=== PATIENT | male | born 1955 | race Caucasian/White ===

== ENCOUNTER → 2016-04-07 | Outpatient (CLI) | payer MEDICAID ==
--- NOTE | 2016-04-07 19:42 | MR ---
MRI of the Right Shoulder History: Persistent shoulder pain in spite of conservative treatment. Technique: Axial proton density, oblique coronal, and sagittal T1 and T2 images were acquired. Comparison examination: April 07, 2015. Findings: From prior study, there has been significant interval decrease in inflammatory changes with in the rotator interval suggestive of decreasing adhesive capsulitis. There has also been interval de crease in features of subacromial bursitis. The subacromial bursa currently is dry. Supraspinatus and infraspinatus tendons are intact. There is mild thinning of subscapularis distally without tear. Teres minor is intact. There is mild focal long head biceps tendinosis through the rotator interval and intra-articular aspe ct, without dislocation or tear. Labral evaluation demonstrates a small focal nondisplaced tear of the posterior superior labrum, exte nding from the biceps labral complex to the 10:30 position. The previously identified small labral pe rforation at the 6 o'clock position is less conspicuous on the current examination with a tiny perila bral cyst identified under the glenoid rim. However, there is evidence of linear undercutting of the posterior inferior labrum which extends from the 6 o'clock position to the 9 o'clock position. Articu lar cartilage of the glenohumeral joint appears intact. Impression: 1. Significant interval improvement in inflammatory changes within the rotator interval and the subac romial/subdeltoid bursa from prior study. 2. Intact rotator cuff. Mild distal subscapularis tendon thinning. 3. Long head biceps tendinosis. 4. Small focal nondisplaced posterior superior glenoid labral tear, similar to previous exam. There i s also a nondisplaced posterior inferior glenoid labral tear extending from 6 o'clock through 9 o'sreedhar ck.
== END ==
LOC: FIMAGING 16:11
PROVIDERS: ATTEND Physician Assistant
DX: M25.511 Pain in right shoulder (principal); M75.21 Bicipital tendinitis, right shoulder; M24.811 Other specific joint derangements of right shoulder, not elsewhere classified

== ENCOUNTER → 2016-07-01 | Outpatient (CLI) | payer MEDICAID | LOC: CIMAGING 17:51 | PROVIDERS: ATTEND Internal Medicine | DX: N43.3 Hydrocele, unspecified (principal); N50.3 Cyst of epididymis | CPT/HCPCS: 76870-PO ==

== ENCOUNTER 2016-07-21 18:57 | Emergency (ER) | payer MEDICAID ==
--- NOTE | 2016-07-21 19:04 | EDPHY ---
H & P Time Seen by Provider: 07/21/16 19:15 HPI/ROS: CHIEF COMPLAINT: Lightheadedness, near syncope HISTORY OF PRESENT ILLNESS: This patient is a normally healthy 61 year old male who presents to the Emergency Department complaining of episodic lightheadedness over the past two days. Today, he experienced two episodes of brief lightheadedness, the first after running this morning and the second after going to the gym tonight. Each time, he reports 1-2 seconds of dizziness/ lightheadedness (not spinning) associated with a sensation of near syncope. He regularly takes his blood pressure and reports that he is typically normotensive but was hypertensive this evening at 192/106. He denies chest pain , dyspnea, nausea, vomiting, or diaphoresis. No history of diabetes, hypertension, or hyperlipidemia. Non-smoker. No familial history of CAD. REVIEW OF SYSTEMS: A ten point review of systems was performed and is negative with the exception of the items mentioned in the HPI. Source: Patient Exam Limitations: No limitations - Medical/Surgical History PMH: 1. BPH, followed by Dr. Cipriano Muller Asthma: No Hx Chronic Respiratory Disease: No Hx Diabetes: No Hx Cardiac Disease: No Hx Renal Disease: No Hx Cirrhosis: No Hx Alcoholism: No Hx HIV/AIDS: No Hx Splenectomy or Spleen Trauma: No Other PMH: l shoulder surgery. knee surgery. appy, large prostate - Social History Smoking Status: Never smoked Additional Social History: Lives with his mother. Computer work, from home. - Physical Exam Exam: General Appearance: Alert. Vital signs reviewed. 180/83. HR 55. Eyes: Pupils equal and round, no conjunctival injection, no discharge. Anicteric. ENT, Mouth: Mucous membranes are moist, no oropharyngeal erythema or edema. Neck: No lymphadenopathy, supple. Respiratory: Lungs are clear to auscultation; no wheezes, rales, or rhonchi. Cardiovascular: Slightly bradycardic, regular; no murmur, rub, or gallop. Gastrointestinal: Abdomen is soft and nontender, no masses or organomegaly, bowel sounds normal. Skin: Warm and dry, no rashes on exposed skin, normal color. Back: Nontender to palpation over the thoracolumbar spine. No CVAT. Extremities: No lower extremity edema, no calf tenderness or swelling. Neurological: Alert and oriented. Moving all four extremities easily and equally. DEJA. EOMI. Tongue midline. Facial expressions symmetric. Psychiatric: Slightly anxious affect. Constitutional: Initial Vital Signs Temperature (C) 36.4 C 07/21/16 19:10 Heart Rate 55 L 07/21/16 19:10 Respiratory Rate 16 07/21/16 19:10 Blood Pressure 180/83 H 07/21/16 19:10 O2 Sat (%) 96 07/21/16 19:10 O2 Delivery Mode Room Air Allergies/Adverse Reactions: Penicillins Allergy (Verified 07/21/16 19:38) Rash Home Medications: Medication Instructions Recorded Flomax 0.4 MG (RX) 07/19/14 Finasteride [Proscar 5 MG (*)] 5 mg PO DAILY 10/28/15 Medical Decision Making - Diagnostics EKG Interpretation: EKG obtained at 1914: The 12 lead EKG was interpreted by myself: Sinus rhythm, rate 52; borderline ST elevation. See hard copy and/or "tracemaster" electronic copy for interpretation. EKG obtained at 2003: The 12 lead EKG was interpreted by myself: Sinus rhythm, rate 52; no S/T changes. See hard copy and/or "tracemaster" electronic copy for interpretation. ED Course/Re-evaluation: This 61-year-old male presents with complaint of lightheadedness that has been episodic throughout the past two days and often precipitated by exertion. He reports hypertension at home tonight; he is hypertensive at 180/83 at triage. He is resting comfortably at time of presentation and has a normal exam. Will proceed with labs, chest x-ray, and EKG. EKG obtained, shows possible ST elevation. There are no prior EKGs for comparison. Will obtain repeat EKG. 324mg PO Aspirin administered. IV established. 1L IV NS administered. 2003: Repeat EKG obtained and is normal. Labs obtained and are within normal limits. Troponin is negative. Chest x-ray is negative for acute findings. I discussed lab, imaging, and EKG results with the patient, who is relieved. He remains hypertensive here in the ED. I discussed with him my recommendation that he follow-up with his PCP for further evaluation of his hypertension. He has no complaints at time of reevaluation and is comfortable being discharged home at this time. He is given strict return precautions prior to discharge. Differential Diagnosis: I considered a differential diagnosis of presyncope including but not limited to hypertension, vasovagal syncope, arrhythmia, ACS, dehydration, and blood loss. - Data Points Laboratory Results: Laboratory Results 07/21/16 19:28 07/21/16 19:28 Medications Given: Discontinued Medications Aspirin (Aspirin) 324 mg PO EDNOW ONE Stop: 07/21/16 19:21 Last Admin: 07/21/16 19:22 Dose: 324 mg Departure - Departure Disposition: Home, Routine, Self-Care Clinical Impression: Hypertension Qualifiers: Hypertension type: essential hypertension Qualified Code(s): I10 - Essential ( primary) hypertension Condition: Good Instructions: Hypertension (ED) Additional Instructions: 1. Call tomorrow to schedule a follow-up appointment with your primary care provider for further evaluation of your hypertension (high blood pressure). Take your blood pressure regularly at home and write down the readings in preparation for your appointment. 2. Return to the Emergency Department if you experience worsening dizziness, if you pass out, if you have chest pain or a severe headache, if you have trouble breathing, or for other serious concerns. Referrals: Truong Mehta MD [Primary Care Provider] - As per Instructions Report Scribed for: Yanci Azar Report Scribed by: Dannielle Pollock Date of Report: 07/21/16 Time of Report: 19:16 Physician Review and Approval Statement: 07/21/16 19:04 Portions of this note were transcribed by the director medical writing. I, Dr. Yanci Azar, personally performed the history, physical exam, and medical decision- making; and confirmed the accuracy of the information in the transcribed note.
--- NOTE | 2016-07-21 19:16 | CPEKG ---
Heart Rate: 52 RR Interval: 1154 P-R Interval: 196 QRSD Interval: 92 QT Interval: 448 QTC Interval: 417 P [place]: 26 QRS [place]: 17 T Wave [place]: 29 EKG Severity - BORDERLINE ECG - EKG Impression: SINUS RHYTHM EKG Impression: BORDERLINE ST ELEVATION, ANTERIOR LEADS Electronically Signed By: Yanci Azar 21-Jul-2016 19:44:52
[2016-07-21] MEDS ORDERED: ASPIRIN 81 MG CHEWABLE TAB PO ONE (19:20)
[2016-07-21 19:36] LABS: % IMMATURE GRANULYOCYTES 0.2 % (0.0-1.1); ABSOLUTE IMMATURE GRANULOCYTES 0.01 10^3/uL (0.00-0.10); ADD DIFF? NO; ADD MORPH? NO; ADD SCAN? NO; ATYPICAL LYMPHOCYTE FLAG 0 (0-99); FRAGMENT RBC FLAG 0 (0-99); HEMATOCRIT 45.1 % (40.0-51.0); HEMOGLOBIN 15.5 g/dL (13.7-17.5); LEFT SHIFT FLG 0 (0-99); LIPEMIA HEMOLYSIS FLAG 90 (0-99); MEAN CELL HEMOGLOBIN 30.3 pg (27.9-34.1); MEAN CELL HEMOGLOBIN CONCENTR. 34.4 g/dL (32.4-36.7); MEAN CELL VOLUME 88.1 fL (81.5-99.8); MEAN PLATELET VOLUME 9.6 fL (8.7-11.7); PLATELET CLUMPS FLAG 0 (0-99); PLATELET COUNT 276 10^3/uL (150-400); RED BLOOD CELL COUNT 5.12 10^6/uL (4.40-6.38); RED CELL DISTRIBUTION WIDTH 12.8 % (11.5-15.2)
[2016-07-21 19:49] LABS: ANION GAP 15 mEq/L (8-16); CALCIUM 9.5 mg/dL (8.5-10.4); CARBON DIOXIDE 26 mEq/l (22-31); CHLORIDE 99 mEq/L (97-110); GLOMERULAR FILTRATION RATE > 60; GLUCOSE 95 mg/dL (70-100); POTASSIUM 4.5 mEq/L (3.5-5.2); SODIUM 140 mEq/L (134-144)
[2016-07-21 20:03] LABS: TROPONIN I < 0.012 ng/mL (0-0.034)
[2016-07-21 21:02] VITALS: RESP 18
[2016-07-21 21:43] VITALS: BP 154/84; PULSE 57; TEMP 98.2; O2SAT 95
--- NOTE | 2016-07-22 08:44 | CPEKG ---
Heart Rate: 53 RR Interval: 1132 P-R Interval: 204 QRSD Interval: 96 QT Interval: 440 QTC Interval: 414 P [place]: 26 QRS [place]: 6 T Wave [place]: 27 EKG Severity - NORMAL ECG - EKG Impression: SINUS RHYTHM EKG Impression: NO SIG CHANGE COMPARED WITH 21 JUL 2016 AT 19:15 Electronically Signed By: Sarah Walker 22-Jul-2016 13:56:51
== END 2016-07-21 21:42 | disposition home or self-care (01) ==
LOC: CED 18:57
DX: I10 Essential (primary) hypertension (principal)
CPT/HCPCS: 71020-PO; 80048-PO; 83880-PO; 84484-PO; 85025-PO

== ENCOUNTER 2018-03-27 16:29 | Emergency (ER) | payer MEDICAID ==
[2018-03-27 16:42] VITALS: BP 174/93
--- NOTE | 2018-03-27 17:06 | EDPHY ---
H & P Time Seen by Provider: 03/27/18 16:38 HPI/ROS: HPI Left ankle injury. 63-year-old male by private vehicle with his . This patient was running this morning for exercise when he slipped and inverted his left ankle. He complains of isolated pain to the lateral malleolus of the left ankle. He denies any associated foot pain. No pain involving his proximal fibula. He reports that he has been able to weightbear on the left ankle but it has been sore. No other injury or complaint. ROS: Constitutional: No fever, no chills. No weakness. Musculoskeletal: No back pain. No neck pain. As above. Skin: No lacerations or abrasions. Neurological: No focal weakness or altered sensation. Past medical history: Prostatic hypertrophy, left shoulder surgery, appendectomy, hypertension knee surgery. Social history: Nonsmoker. Here with his . No alcohol. Physical Exam: General Appearance: Alert, no distress. This patient is responding to questions appropriately and in full sentences. This patient appears well- hydrated and well-nourished. Eyes: Pupils equal and round no pallor or injection. No lid edema, erythema or injection. Left ankle and foot exam: He has some tenderness to palpation over the lateral malleolus. No bony deformity or crepitus noted over this area. No associated ecchymosis, swelling, erythema or warmth. The medial malleolus is nontender on palpation. The proximal fibula is nontender on palpation. The bony aspects of the foot are nontender on palpation. The left lower extremity and foot are neurovascularly intact. Neurological: Motor sensory function is grossly intact. Cranial nerves are normal. Slightly antalgic gait secondary to sprain left ankle. Skin: Warm and dry, no rashes. No lacerations or abrasions. Extremities are symmetrical. All joints range without pain or impingement except noted. Psychiatric: No agitation. No depression. Database: EKG: Imaging: Left ankle x-ray series: Procedures: Emergency department course: Triage vital signs reviewed. He is moderately hypertensive. He is afebrile. From triage she was sent for left ankle x-ray series: 5:15 p.m., patient re-evaluated, he has been given 600 mg of ibuprofen. Results of his x-rays and diagnosis of left ankle sprain discussed with him. He was fitted with an orthopedic boot. He was given instructions on crutch use and weight-bearing as tolerated to his left ankle. I have instructed him to follow up with his primary care physician in 2-3 days for re-evaluation. Orthopedic referral can also be obtained at that time if needed. He is in agreement with this plan. Ibuprofen dosing for pain control was discussed with him. Return to emergency department precautions reviewed. All of his questions were answered. He was discharged from the emergency department in good condition. The patient is currently addressing his elevated blood pressure with his primary care physician. Differential Diagnosis: The differential diagnosis on this patient includes but is not limited to left ankle sprain. Fracture, dislocation of the left ankle unlikely. This represents a partial list of diagnoses considered. These considerations are based on history, physical exam, past history, reassessment and diagnostic testing. Smoking Status: Never smoked Constitutional: Initial Vital Signs Temperature (C) 36.5 C 03/27/18 16:38 Heart Rate 53 L 03/27/18 16:38 Respiratory Rate 18 03/27/18 16:38 Blood Pressure 174/93 H 03/27/18 16:38 O2 Sat (%) 96 03/27/18 16:38 O2 Delivery Mode Room Air Allergies/Adverse Reactions: Penicillins Allergy (Verified 03/27/18 16:37) Rash Home Medications: Medication Instructions Recorded Flomax 0.4 MG (RX) 07/19/14 Finasteride [Proscar 5 MG (*)] 5 mg PO DAILY 10/28/15 Amlodipine Besylate 03/27/18 Medical Decision Making - Diagnostics Imaging Results: Imaging Impressions Ankle X-Ray 03/27/18 16:44 Impression: Nothing acute identified. Departure - Departure Disposition: Home, Routine, Self-Care Clinical Impression: Left ankle sprain Condition: Good Instructions: Ankle Sprain (ED) Additional Instructions: Read and follow provided instructions. Follow-up with your primary care physician in 2-3 days for re-evaluation. Weightbear as tolerated on your left ankle. Avoid any activity which exacerbates pain. Ibuprofen dosin mg every 6 hours with meals for the next 3 days only. Take only as needed for pain. Return to the emergency department for worsening pain, swelling, discoloration or other serious concerns. Referrals: Truong Mehta MD [Primary Care Provider] - As per Instructions
[2018-03-27] MEDS ORDERED: IBUPROFEN 600 MG TAB PO ONE (17:08)
== END 2018-03-27 17:24 | disposition home or self-care (01) ==
LOC: CED 16:29
DX: S93.402A Sprain of unspecified ligament of left ankle, initial encounter (principal); X50.0XXA Overexertion from strenuous movement or load, initial encounter; Y93.01 Activity, walking, marching and hiking; Z88.0 Allergy status to penicillin
CPT/HCPCS: 73610-PO; 99283-ER; L4386-ER